=== PATIENT | male | born 1975 | race Caucasian/White ===

== ENCOUNTER 2021-04-02 11:22 | Observation (INO) | payer OTHER ==
[~2021-04-02] VITALS: Ht 180.3 cm; Wt 108.9 kg
[2021-04-02] MEDS ORDERED: SODIUM CHLORIDE 0.9% 1000ML 1,000 ML IV STA ×2 (11:43→13:26)
[2021-04-02] MEDS ORDERED: CEFTRIAXONE 1 GM VIAL IV ONE (11:45)
[2021-04-02] MEDS ORDERED: ACETAMINOPHEN 325 MG TAB PO ONE (11:45)
[2021-04-02] MEDS ORDERED: SODIUM CHLORIDE 0.9% 1000ML 2,000 ML ONE (12:16)
[2021-04-02] MEDS ORDERED: SODIUM CHLORIDE 0.9% 1000ML 1,000 ML IV SCH (12:45)
[2021-04-02] MEDS ORDERED: ONDANSETRON HCL INJ 2MG/ML 2ML 2 MG/ML VIAL IV PRN (12:45)
[2021-04-02] MEDS ORDERED: ACETAMINOPHEN 325 MG TAB PO PRN (12:45)
[2021-04-02] MEDS ORDERED: DIPHENHYDRAMINE HCL INJ 50 MG/ML VIAL IV PRN (12:45)
[2021-04-02] MEDS ORDERED: CEFTRIAXONE 1 GM VIAL ONE (12:57)
[2021-04-02] MEDS ORDERED: CEFTRIAXONE 1 GM in SODIUM CHLORIDE 0.9% 50ML 50 ML IV ONE (13:00)
[2021-04-02] MEDS ORDERED: SODIUM CHLORIDE 0.9% 250ML 250 ML ONE (14:07)
[2021-04-02] MEDS ORDERED: TELMISARTAN-HC1 EACH (15:08)
[2021-04-02] MEDS ORDERED: BYSTOLIC5 MG (15:08)
[2021-04-02] MEDS ORDERED: NEBIVOLOL HCL5 MG (15:08)
[2021-04-02] MEDS ORDERED: ATORVASTATIN CA40 MG (15:08)
[2021-04-02] MEDS ORDERED: FENOFIBRATE160 MG (15:08)
[2021-04-02] MEDS ORDERED: VASCEPA1 GM (15:08)
[2021-04-02] MEDS ORDERED: INDOMETHACIN50 MG (15:08)
[2021-04-02 15:38] VITALS: BP 115/73
[2021-04-02 16:01] VITALS: BP 115/73
[2021-04-02 16:32] VITALS: BP 115/73
[2021-04-02] MEDS ORDERED: ENOXAPARIN SOD INJ 40 MG/0.4 ML SYR SC SCH (17:00)
[2021-04-02] MEDS ORDERED: SODIUM CHLORIDE 0.9% 1000ML 500 ML IV ONE (17:00)
[2021-04-02] MEDS ORDERED: SODIUM CHLORIDE 0.9% 1000ML 1,000 ML ONE (17:04)
[2021-04-02] MEDS: FAMOTIDINE 20 MG TAB PO SCH (17:19)
[2021-04-02] MEDS: ENOXAPARIN SOD INJ 40 MG/0.4 ML SYR SC SCH (17:19)
[2021-04-02] MEDS: ASCORBIC ACID 500 MG TAB PO SCH (17:19)
[2021-04-02] MEDS ORDERED: REMDESIVIR 200MG 200 MG in SODIUM CHLORIDE 0.9% 100 ML IV ONE (18:00)
[2021-04-02] MEDS: DEXAMETHASONE SOD PHOS 10 MG/1 ML VIAL IV SCH (18:33)
[2021-04-02 20:00] VITALS: BP 103/65
[2021-04-02 20:35] VITALS: BP 103/65
[2021-04-03 00:59] VITALS: BP 111/73
[2021-04-03 04:35] VITALS: BP 106/69
[2021-04-03 06:37] LABS: LYMPHOCYTES % 29.4 % (18.0-39.1); MEAN CORPUSCULAR HEMOGLOBIN 29.8 pg (28-32); MEAN CORPUSCULAR HGB CONC 33.3 g/dL (31-35); MEAN CORPUSCULAR VOLUME 89.4 fL (81-99); MONOCYTES # (AUTO) 0.4 (0.2-0.8); MONOCYTES % 12.5 % (4.4-11.3); NEUTROPHILS % 57.8 % (38.7-80.0); PLATELET COUNT 149 x10e3/uL (140-360)
[2021-04-03 07:24] LABS: ALBUMIN 3.5 g/dL (3.5-5.0); ALBUMIN/GLOBULIN RATIO 1.1 (0.8-2.0); ANION GAP 17.9 mmol/L (8-16); CALCIUM 8.3 mg/dL (8.4-10.2); CREATININE, SERUM 1.06 mg/dL (0.72-1.25); POTASSIUM 3.9 mmol/L (3.5-5.1)
[2021-04-03 07:42] VITALS: BP 103/64
[2021-04-03 08:00] VITALS: BP 103/64
[2021-04-03] MEDS: FAMOTIDINE 20 MG TAB PO SCH (08:12)
[2021-04-03] MEDS: DEXAMETHASONE SOD PHOS 10 MG/1 ML VIAL IV SCH (08:12)
[2021-04-03] MEDS: ASCORBIC ACID 500 MG TAB PO SCH (08:13)
[2021-04-03] MEDS: ENOXAPARIN SOD INJ 40 MG/0.4 ML SYR SC SCH (08:14)
[2021-04-03] MEDS ORDERED: CEFTRIAXONE 2 GM in SODIUM CHLORIDE 0.9% 100 ML IV SCH (09:00)
[2021-04-03] MEDS ORDERED: ZINC SULFATE 50 MG CAP PO SCH (09:00)
[2021-04-03] MEDS ORDERED: Zinc Sulfate PO (11:53)
[2021-04-03] MEDS ORDERED: ASCORBIC ACID500 MG PO (11:53)
[2021-04-03] MEDS ORDERED: LEVOFLOXACIN750 MG PO (11:53)
[2021-04-03 12:01] VITALS: BP 110/71
[2021-04-03] MEDS ORDERED: DECADRON4 M1 PO (13:04)
[2021-04-03] MEDS ORDERED: REMDESIVIR 100MG 100 MG in SODIUM CHLORIDE 0.9% 100 ML IV SCH (16:00)
== END 2021-04-03 14:50 | disposition home or self-care (01) ==
LOC: FSED 11:25 → ERHOLD 12:37 → MED/SURG3 15:06
PROVIDERS: ADMIT Internal Medicine; ATTEND Internal Medicine
DX: U07.1 COVID-19 (principal); E78.5 Hyperlipidemia, unspecified; I10 Essential (primary) hypertension; J12.82 Pneumonia due to coronavirus disease 2019; J96.01 Acute respiratory failure with hypoxia; N17.9 Acute kidney failure, unspecified; E66.9 Obesity, unspecified; Z68.33 Body mass index [BMI] 33.0-33.9, adult; E78.00 Pure hypercholesterolemia, unspecified; E87.2 Acidosis; I95.1 Orthostatic hypotension
CPT/HCPCS: 36415; 71045; 80053 ×2; 82553; 82728; 83036; 83518; 84443; 84484; 85025 ×2; 87040; 87400; 93005; 94799 ×2; 96374; 99284; G0378 ×2; J0456; J0696 ×2; J1100 ×2; J1650 ×2; J7030; J7050 ×3; U0002